=== PATIENT | male | born 1940 | race Caucasian/White ===

== ENCOUNTER → 2017-05-17 | Outpatient (CLI) | payer OTHER ==
--- NOTE | 2017-05-17 13:28 | DIAGNOSTIC IMAGING REPORT ---
CHEST 2 VIEWS ROUTINE HISTORY: 76 years-old Male screening exam with shortness of breath. COMPARISON: Chest radiograph 07/08/2015 TECHNIQUE: Frontal and lateral views of the chest FINDINGS: Moderate sized hiatal hernia with partially intrathoracic stomach is present. Cardiac silhouette is within normal limits. There is atherosclerosis of the aorta. There is mild biapical pleural parenchymal scarring. No pneumothorax, pleural effusion, focal airspace consolidation or overt pulmonary edema. There is approximately 40% anterior endplate compression deformity of a mid thoracic segment, unchanged from comparison. Bones are mildly demineralized throughout. IMPRESSION: 1. No acute cardiopulmonary process. 2. Moderate-sized hiatal hernia with partially intrathoracic stomach redemonstrated. The above report was generated using voice recognition software. It may contain grammatical, syntax or spelling errors. Electronically signed by: Leobardo Taylor M.D. 05/17/2017 1:27 PM Dictated Date/Time: 05/17/2017 1:25 PM
[2017-05-17 13:36] LABS: BASO % 0.4 %; BASO ABS # 0.02 K/uL (0-0.2); COMPLETE YES; EOS % 5.2 %; HEMATOCRIT 39.9 % (42-52); LYMPH % 28.3 %; LYMPH ABS # 1.32 K/uL (1.2-3.4); MEAN CELL VOLUME 91.3 fL (80-100); MEAN CORPUSCULAR HGB CONC 35.1 g/dl (32-36); MONO % 8.8 %; NEUT % 57.3 %; PLATELET COUNT 155 K/uL (130-400); RED BLOOD COUNT 4.37 M/uL (4.7-6.1); WHITE BLOOD COUNT 4.66 K/uL (4.8-10.8)
[2017-05-17 16:57] LABS: ALT/SGPT 24 U/L (12-78); AST/SGOT 14 U/L (15-37); BLOOD UREA NITROGEN 12 mg/dl (7-18); BUN/CREATININE RATIO 12.2 (10-20); CALCIUM 8.6 mg/dl (8.5-10.1); CARBON DIOXIDE 27 mmol/L (21-32); CHLORIDE 109 mmol/L (98-107); GLUCOSE 85 mg/dl (70-99); POTASSIUM 4.3 mmol/L (3.5-5.1); SODIUM 141 mmol/L (136-145)
[2017-05-17 17:00] LABS: ALB/GLOB RATIO 1.1 (0.9-2); ALKALINE PHOSPHATASE 42 U/L (45-117)
== END | disposition home or self-care (01) ==
LOC: C.RADBC 12:19
PROVIDERS: ATTEND Internal Medicine Hospice and Palliative Medicine
DX: R53.83 Other fatigue (principal)

== ENCOUNTER → 2017-07-21 | Outpatient (CLI) | payer OTHER ==
[2017-07-21 08:32] LABS: HEMATOCRIT 41.3 % (42-52); MEAN CELL VOLUME 92.8 fL (80-100); MEAN CORPUSCULAR HEMOGLOBIN 31.9 pg (25-34); MEAN CORPUSCULAR HGB CONC 34.4 g/dl (32-36); MEAN PLATELET VOLUME 9.2 fL (7.4-10.4); PLATELET COUNT 153 K/uL (130-400); RED BLOOD COUNT 4.45 M/uL (4.7-6.1); WHITE BLOOD COUNT 4.33 K/uL (4.8-10.8)
[2017-07-21 08:41] LABS: ALT/SGPT 26 U/L (12-78); BLOOD UREA NITROGEN 9 mg/dl (7-18); BUN/CREATININE RATIO 9.7 (10-20); CALCIUM 8.8 mg/dl (8.5-10.1); CARBON DIOXIDE 28 mmol/L (21-32); CHLORIDE 109 mmol/L (98-107); CHOLESTEROL 146 mg/dl (0-200); CREATININE 0.97 mg/dl (0.60-1.40); GLUCOSE 90 mg/dl (70-99); POTASSIUM 4.1 mmol/L (3.5-5.1); SODIUM 144 mmol/L (136-145); TRIGLYCERIDES 81 mg/dl (0-150); VERY LOW DENSITY LIPOPROT CALC 16 mg/dl
[2017-07-21 08:51] LABS: ALKALINE PHOSPHATASE 41 U/L (45-117); AST/SGOT 20 U/L (15-37); CHOLESTEROL/HDL RATIO 2.4; HDL CHOLESTEROL 61 mg/dl; LDL CHOLESTEROL CALCULATED 69 mg/dl
== END | disposition home or self-care (01) ==
LOC: C.LABFOXMH 08:12
PROVIDERS: ATTEND Internal Medicine
DX: E78.5 Hyperlipidemia, unspecified (principal); R60.0 Localized edema

== ENCOUNTER → 2017-11-25 | Outpatient (CLI) | payer OTHER | END | disposition home or self-care (01) | LOC: C.LABFOXMH 07:51 | PROVIDERS: ATTEND Internal Medicine | DX: R35.0 Frequency of micturition (principal) ==

== ENCOUNTER → 2017-12-09 | Outpatient (CLI) | payer OTHER ==
--- NOTE | 2017-12-14 09:08 | PULMONARY FUNCTION TEST ---
Spirometry is consistent with a mild obstructive pattern. Repeat study done following bronchodilators did show a 15% improvement in FEV1. 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 Lung volumes showed increased FRC, RV and TLC consistent with obstruction. Diffusion capacity was 135% which would be higher than normal.
== END | disposition home or self-care (01) ==
LOC: C.RC 13:34
PROVIDERS: ATTEND Internal Medicine
DX: R06.02 Shortness of breath (principal)